=== PATIENT | male | born 1965 | race Caucasian/White ===

== ENCOUNTER → 2021-01-08 11:03 | Outpatient (BNVA) | payer OTHER, SELFPAY | PROVIDERS: Visit Provider Internal Medicine | DX: S01.01XA Laceration without foreign body of scalp, initial encounter (principal); W22.09XA Striking against other stationary object, initial encounter | CPT/HCPCS: 12001; 99203 ==

== ENCOUNTER → 2021-01-09 09:42 | Outpatient (BNVA) | payer OTHER, SELFPAY | PROVIDERS: Visit Provider Internal Medicine | DX: S01.81XA Laceration without foreign body of other part of head, initial encounter (principal); X58.XXXA Exposure to other specified factors, initial encounter | CPT/HCPCS: 99213 ==

== ENCOUNTER → 2021-01-14 08:59 | Outpatient (BNVA) | payer OTHER, SELFPAY | PROVIDERS: Visit Provider Physician Assistant | DX: S01.01XA Laceration without foreign body of scalp, initial encounter (principal); X58.XXXA Exposure to other specified factors, initial encounter; Z48.02 Encounter for removal of sutures | CPT/HCPCS: 99212; 99213 ==

== ENCOUNTER → 2023-01-13 12:47 | Outpatient (BNVA) | payer OTHER, SELFPAY | PROVIDERS: Visit Provider Physician Assistant Medical | DX: M25.812 Other specified joint disorders, left shoulder (principal) | CPT/HCPCS: 99202 ==

== ENCOUNTER → 2023-01-28 14:58 | Outpatient (BNVA) | payer OTHER, SELFPAY | PROVIDERS: Visit Provider Internal Medicine | DX: M25.512 Pain in left shoulder (principal) | CPT/HCPCS: 99214 ==

== ENCOUNTER → 2023-02-08 13:04 | Outpatient (BNVA) | payer OTHER, SELFPAY | PROVIDERS: Visit Provider Internal Medicine | DX: M75.42 Impingement syndrome of left shoulder (principal) | CPT/HCPCS: 99213 ==

== ENCOUNTER → 2025-01-31 11:21 | Outpatient (BNVA) | payer OTHER, SELFPAY | PROVIDERS: Visit Provider Physician Assistant Medical | DX: S46.912A Strain of unspecified muscle, fascia and tendon at shoulder and upper arm level, left arm, initial encounter (principal); S16.1XXA Strain of muscle, fascia and tendon at neck level, initial encounter; X50.0XXA Overexertion from strenuous movement or load, initial encounter; R07.89 Other chest pain; R94.31 Abnormal electrocardiogram [ECG] [EKG] | CPT/HCPCS: 73030; 99202 ==

== ENCOUNTER 2025-01-31 14:35 | Emergency (ER) | payer OTHER, SELFPAY ==
--- NOTE | ~2025-01-31 | XR_ITS ---
EXAMINATION: XR CHEST CLINICAL INFORMATION: left shoulder pain COMPARISON: None available. TECHNIQUE: 2 views of the chest were obtained. FINDINGS: The cardiac, hilar, and mediastinal contours are normal. The lungs are clear bilaterally. There is no pneumothorax or pleural effusion. There is no focal osseous or soft tissue abnormality. Mild pectus excavatum. XR/XR chest 2V IMPRESSION: No active pulmonary disease. Electronically signed by: Jossue Elizalde MD 01/31/2025 03:34 PM EDT
--- NOTE | 2025-01-31 14:38 | ECG_ITS ---
Test Reason : LEFT SHOULDER PAIN Blood Pressure : */* mmHG Vent. Rate : 51 BPM Atrial Rate : 51 BPM P-R Int : 170 ms QRS Dur : 152 ms QT Int : 468 ms P-R-T Axes : 73 -60 48 degrees QTcB Int : 431 ms Sinus bradycardia Right bundle branch block Left anterior fascicular block Bifascicular block Abnormal ECG No previous ECGs available Referred By: Generic ED Physician Electronically Signed By: MAYRA CARRENO
--- NOTE | 2025-01-31 15:03 | ED_ITS ---
HPI - General Adult General Chief complaint: Chest Pain Stated complaint: shoulder inj Time Seen by Provider: 01/31/25 18:51 Source: patient Mode of arrival: ambulatory Limitations: no limitations History of Present Illness ED Provider: Jossue SHANNON HPI narrative: The patient is a 59-year-old male presenting to the ED for evaluation of left shoulder pain which began yesterday after lifting a heavy bag of material while at work. Patient reports the pain was sudden in onset and is increased with range of motion, patient reports pain occasionally radiates into his jaw. The patient reports he took naproxen last night with improvement in symptoms, however throughout the day today symptoms returned and he presented to [facility] for evaluation. While at work infection an EKG was performed which shows a right bundle-branch block and left anterior fascicular block, prompting were connection to send the patient to the ED for evaluation. Related Data Allergies Allergy/AdvReac Type Severity Reaction Status Date / Time No Known Allergies Allergy Verified 01/31/25 15:06 Review of Systems 2 Review of Systems: Yes all other systems are reviewed and are negative PMFSH Social History Social History Smoked in Last 30 Days: No Use of substances other than those prescribed or required for medical reasons: No Advance Directives: No Advance Directives Information Provided: No Do you have a plan to hurt others: No Plan Physical Exam ED Exam Exam: CONSTITUTIONAL: The patient appears non-toxic, well nourished and in no acute distress. Vital signs as documented. HEAD: Atraumatic, normocephalic. EYES: EOMs grossly intact, pupils equal, conjunctiva clear, no exudate. ENT: Nares patent, no discharge. Airway patent, no audible stridor, visible mucosa is pink and moist without noted lesions. NECK: Trachea is midline, no obvious masses or gross abnormalities. CHEST: Symmetric movement, normal appearance. Nontender to palpation. LUNGS: LS present and CTAB, no w/r/r. Non-labored work of breathing. CARDIAC: Regular Rhythm, S1/S2 appreciated, no murmurs, rubs or gallops. ABDOMEN: Abdomen soft and non-tender x4 quadrants, no palpable masses or organomegaly. : Deferred. EXTREMITIES: There is pain reported with abduction and anterior rotation of the left upper extremity, as well as tenderness to palpation of the anterior left deltoid, no AC joint tenderness or deformity, no crepitus. Distal CSM intact, 2+ radial pulse. Pain is reproducible with pushing and pulling against resistance with the upper extremities. Normal tone, moves all other extremities spontaneously without reported pain. No obvious acute injury or deformity noted. NEURO: Alert and oriented x3, CN II-XII appear grossly intact. Cerebellar Functioning grossly intact. No obvious sensory or motor deficits. Speech clear and appropriate. PSYCH: normal affect, appropriate eye contact, fluid speech, with appropriate response to questioning. No reported suicidality or homicidality. SKIN: Warm, dry, color appropriate, normal turgor. No rashes noted. Vital Signs: Vital Signs - 24 hr 01/31/25 15:04 01/31/25 17:06 Temperature 97.7 F 97.5 F Pulse Rate 53 50 Respiratory Rate 16 17 Blood Pressure 145/81 H 163/85 H Pulse Oximetry 99 100 Oxygen Delivery Method Room Air Room Air BMI result Body Mass Index 21.6 Course Course Course Narrative: This is a rapid medical exam performed by Umesh Liu NP: Additional HPI, ROS, PE not included below will be deferred to primary provider. Patient is a 59-year-old male presenting from [facility] with complaint of left shoulder pain radiating to back. States he lifted a 55lb bag at work yesterday and pain began afterwards but not immediately afterwards. Noted to have new LBBB on EKG at . States pain is still present but has improved from yesterday. Plan: EKG, labs, CXR Medical Decision Making Medical Decision Making MDM Narrative: 7:24 PM 01/31/2025 (Mary SHANNON): The patient is a 59-year-old male presenting to the ED for evaluation of left shoulder pain which began yesterday after lifting a heavy bag of material while at work. Patient reports the pain was sudden in onset and is increased with range of motion, patient reports pain occasionally radiates into his jaw. The patient reports he took naproxen last night with improvement in symptoms, however throughout the day today symptoms returned and he presented to [facility] for evaluation. While at work infection an EKG was performed which shows a right bundle-branch block and left anterior fascicular block, prompting were connection to send the patient to the ED for evaluation. In the ED patient's exam is markedly reassuring, pain is fully reproducible with range of motion and pushing and pulling against resistance, there is mild tenderness of the anterior deltoid versus AC joint, without associated crepitus or deformity. The patient's laboratory evaluation is markedly reassuring, troponin is negative x2, EKG shows right bundle-branch block and left anterior fascicular block, no left bundle-branch block, no acute ischemia. The remainder of the patient's laboratory evaluation is reassuring, no leukocytosis, anemia, electrolyte abnormality, or [place]. Chest x-ray is nondiagnostic. Patient's presentation appears consistent with musculoskeletal strain of the left shoulder, patient will be treated with ibuprofen, lidocaine, and will be discharged to follow up with PCP regarding EKG, and working action regarding shoulder pain. Admission/Observation Consideration of admission/observation: Escalation of care including admission/observation considered Lab Data MDM Lab Attestation statement: I reviewed the patient's lab results. 01/31/25 15:22 01/31/25 15:22 Labs: Lab Results 01/31/25 01/31/25 Range/Units 15:22 17:11 WBC 6.7 (4.8-10.8) X10*3/uL RBC 4.90 (4.60-5.80) X10*6/uL Hgb 15.2 (14.0-18.0) g/dl Hct 43.8 (42.0-52.0) % MCV 89.4 (80.0-98.0) fL MCH 31.0 (27.0-33.0) pg MCHC 34.7 (31.0-36.0) g/dl RDW 12.3 (11.0-16.0) % Plt Count 180 (160-400) X10*3/uL MPV 8.9 L (9.4-12.4) fL Immature Gran % (Auto) 0.1 (0.0-0.4) % Neut % (Auto) 66.9 (45-73) % Lymph % (Auto) 19.9 L (20-40) % Vermilion % (Auto) 11.2 H (2-11) % Eos % (Auto) 1.6 (0-4) % Baso % (Auto) 0.3 (0-2) % Lymph # (Auto) 1.3 (1.2-4.9) X10*3/uL [place] # (Auto) 0.8 (0.1-1.2) X10*3/uL Eos # (Auto) 0.1 (0.0-0.4) X10*3/uL Baso # (Auto) 0.0 (0.0-0.2) X10*3/uL Abs Immat Gran (auto) 0.01 (0.00-0.03) X10*3/uL Absolute Neuts (auto) 4.5 (2.0-8.3) x10*3/uL Absolute Nucleated RBC 0.000 (0.0-0.012) X10*3/uL Nucleated RBC % (auto) 0.0 (0.0-0.2) /100WBC PT 12.1 (10.9-12.4) SEC INR 1.1 (0.9-1.1) Sodium 142 (135-145) mmol/L Potassium 4.5 (3.3-5.1) mmol/L Chloride 104 (96-108) mmol/L Carbon Dioxide 30 H (22-29) mmol/L Anion Gap 13 (12-20) BUN 15 (9-16) mg/dL Creatinine 0.85 (0.5-1.4) mg/dL Estim Creat Clear Calc 116.3 Estimated GFR > 60 Random Glucose 99 (60-115) mg/dL Calcium 9.1 (8.4-10.2) mg/dL Magnesium 2.0 (1.6-2.6) mg/dL Total Bilirubin 1.7 H (0.0-1.0) mg/dL AST 30 (5-37) U/L ALT 31 (0-40) U/L Alkaline Phosphatase 77 (39-117) U/L Troponin I High Sens < 2.7 < 2.7 (<3.5-35.0) ng/L Total Protein 7.1 (6.5-8.0) g/dL Albumin 4.4 (3.5-5.0) g/dL Independent Interpretation I performed an independent interpretation of an: EKG (EKG shows sinus bradycardia with a rate of 51, with right bundle-branch block and left anterior fascicular block. No evidence of acute ischemia, no ST elevation, no ectopy. QTC 431, no old for comparison.) Radiology Impression Discussion of test interpretation with radiology: I have reviewed the radiologist's reading. Radiologist Impression: EXAMINATION: XR CHEST CLINICAL INFORMATION: left shoulder pain COMPARISON: None available. TECHNIQUE: 2 views of the chest were obtained. FINDINGS: The cardiac, hilar, and mediastinal contours are normal. The lungs are clear bilaterally. There is no pneumothorax or pleural effusion. There is no focal osseous or soft tissue abnormality. Mild pectus excavatum. XR/XR chest 2V IMPRESSION: No active pulmonary disease. Electronically signed by: Jossue Elizalde MD 01/31/2025 03:34 PM EDT RP Prescription Management I considered prescription management with: Pain Medication Discharge Plan Discharge Clinical Impression: Bifascicular block Shoulder pain, left Qualifiers: Chronicity: acute Qualified Code(s): M25.512 - Pain in left shoulder Patient Disposition: Home, Self-Care Instructions: Shoulder Pain (ED) Additional Instructions: Thank you for choosing [facility] Emergency Department for your care today. Thankfully your laboratory evaluation, EKG, and chest x-ray today showed no evidence of an acute cardiac, pulmonary, infectious, or metabolic cause for your left shoulder pain. Given the reproductive nature of your pain with movement, your left shoulder pain is likely due to a musculoskeletal strain. Your EKG did show intraventricular blocks however there is no indication for emergent intervention at this time. At this time there is no indication for admission to the hospital or continued ED observation, and it is safe to discharge you home. Please follow up with [facility] regarding your shoulder pain. Please follow up with your primary care provider regarding the new findings noted on your EKG. You may take alternating (staggered) doses of ibuprofen 600mg and Tylenol 1000mg every 4 hours as needed for any additional pain. Please rest the injured area, and apply ice for 20 minutes every hour. Please stay well hydrated and get plenty of rest. Please do not immobilize your shoulder as this could result in a ?frozen shoulder? requiring surgical intervention. We have treated you with a lidocaine patch, if you find this provides you significant relief additional patches can be purchased at any local pharmacy without a prescription. Please follow up with your primary care physician for re-evaluation, additional management of your symptoms, and continued preventative care. If you do not have a primary care physician, please call the [facility] at [phone] to establish a new primary care physician. While waiting to establish your new primary care physician, you can call our [facility] at [phone] for non-emergency needs. Please return to the emergency department if you develop a severe or sudden change in your symptoms, a fever over 100.4 that does not improve with Tylenol or Ibuprofen, recurrent vomiting, or any other new or worsening symptoms or concerns. Referrals: Siobhan Durbin MD [Primary Care Provider, Medical] Clinical Impression: Bifascicular block; Shoulder pain, left Print Language: Vietnamese
[2025-01-31 15:04] VITALS: BP 145/81; PULSE 53; RESP 16; TEMP 36.5; O2SAT 99; BMI 21.6
[2025-01-31 15:28] LABS: Hematocrit 43.8 % (42.0-52.0); Hemoglobin 15.2 g/dl (14.0-18.0); Imm Gran Abs Auto 0.01 X10*3/uL (0.00-0.03); Imm Gran Pct Auto 0.1 % (0.0-0.4); Lymphocytes Absolute Auto 1.3 X10*3/uL (1.2-4.9); MANUAL DIFF FLAG NO; Mean Corpuscular HGB Conc 34.7 g/dl (31.0-36.0); Mean Corpuscular Hemoglobin 31.0 pg (27.0-33.0); Mean Corpuscular Volume 89.4 fL (80.0-98.0); NRBC Abs Auto 0.000 X10*3/uL (0.0-0.012); NRBC Pct Auto 0.0 /100WBC (0.0-0.2); Platelet Count 180 X10*3/uL (160-400); Red Blood Count 4.90 X10*6/uL (4.60-5.80); White Blood Count 6.7 X10*3/uL (4.8-10.8)
[2025-01-31 15:39] LABS: INTERNATIONAL NORM RATIO 1.1 (0.9-1.1); Prothrombin Time 12.1 SEC (10.9-12.4)
[2025-01-31 15:41] LABS: Alanine Aminotransferase 31 U/L (0-40); Albumin Level 4.4 g/dL (3.5-5.0); Alkaline Phosphatase 77 U/L (39-117); Anion Gap 13 (12-20); Aspartate Amino Transferase 30 U/L (5-37); Blood Urea Nitrogen 15 mg/dL (9-16); Calcium 9.1 mg/dL (8.4-10.2); Carbon Dioxide 30 mmol/L (22-29); Chloride 104 mmol/L (96-108); Creatinine Clr Calc Pharmacy 116.3; Estimated Glomerular Filt Rate > 60; Magnesium 2.0 mg/dL (1.6-2.6); Potassium 4.5 mmol/L (3.3-5.1); Sodium 142 mmol/L (135-145); Total Protein 7.1 g/dL (6.5-8.0)
[2025-01-31 15:52] LABS: Troponin-I High Sensitivity < 2.7 ng/L (<3.5-35.0)
[2025-01-31 17:06] VITALS: BP 163/85; PULSE 50; RESP 17; TEMP 36.4; O2SAT 100
[2025-01-31 17:38] LABS: Troponin-I High Sensitivity < 2.7 ng/L (<3.5-35.0)
[2025-01-31] MEDS: Lidocaine 4 % Patch ADH..PATCH 1 PATCH TRANSDERMA (19:40)
[2025-01-31 19:42] VITALS: BP 147/76; PULSE 51; RESP 14; TEMP 36.7; O2SAT 100
[2025-01-31 19:48] VITALS: BP 147/76; PULSE 51; RESP 14; TEMP 36.7; O2SAT 100
--- NOTE | 2025-01-31 19:48 | PC.NURSE ---
pt refused motrin, gives him an upset stomach
== END 2025-01-31 19:49 | disposition home or self-care (01) ==
PROVIDERS: Physician Assistant Medical; Registered Nurse Emergency; Emergency Provider Emergency Medicine; PCP Internal Medicine
DX: M25.512 Pain in left shoulder (principal); I45.2 Bifascicular block; X50.0XXA Overexertion from strenuous movement or load, initial encounter; X50.9XXA Other and unspecified overexertion or strenuous movements or postures, initial encounter; Y93.89 Activity, other specified; Y92.89 Other specified places as the place of occurrence of the external cause; Y99.8 Other external cause status
CPT/HCPCS: 36415; 71046; 80053; 83735; 84484; 85025; 85610; 93005; 99283; 99285

== ENCOUNTER → 2025-01-31 14:38 | Outpatient (BNV) | payer OTHER, SELFPAY | PROVIDERS: Emergency Provider Emergency Medicine; PCP Internal Medicine; Visit Provider Internal Medicine | DX: I45.2 Bifascicular block (principal); R00.1 Bradycardia, unspecified | CPT/HCPCS: 93010 ==

== ENCOUNTER → 2025-01-31 15:05 | Outpatient (BNV) | payer OTHER, SELFPAY | PROVIDERS: Visit Provider Radiology Diagnostic Radiology | DX: M25.512 Pain in left shoulder (principal) | CPT/HCPCS: 71046 ==